=== PATIENT | female | born 1990 | race Caucasian/White ===

== ENCOUNTER 2020-02-21 19:14 | Emergency (ER) | payer BC ==
[~2020-02-21] VITALS: Ht 165.1 cm; Wt 86.4 kg
[~2020-02-21 19:14] MED LIST: /BUSP5TA OR; AMIT10TA2 PO; AMIT150T PO; BACL10TA2 PO; CARA1SUS PO; CELE10TA PO; DARV100T OR; DICL13PA TD; GICOCKTAIL PO; KETO10TAB PO; LIBRAX OR; LIORESAL PO; NICO7DIS4 TD; ONDA-1 OR; PERC5TAB PO; PREG25CA PO; PROT1TAB2 OR; PROT1TAB2 PO; REGL10TA6 PO; SUMA4INJ3 SC; SUMA5SPR; SUMA6INJ16 SC; SUMAPOW3; TYLE167L PO; XANA0.25 PO; XANA2TAB2 PO
[2020-02-21] MEDS ORDERED: SUCR1TA PO (19:36)
[2020-02-21] MEDS ORDERED: CLOP75TA2 (19:36)
[2020-02-21] MEDS ORDERED: OXYC1TAB23 (19:36)
[2020-02-21] MEDS ORDERED: PROM50TA4 PO (19:36)
[2020-02-21] MEDS ORDERED: ALPR1TAB6 PO (19:36)
[2020-02-21] MEDS ORDERED: DEXI60CA2 PO (19:36)
[2020-02-21] MEDS ORDERED: SUCR1SS PO (19:36)
[2020-02-21] MEDS ORDERED: HYDR-3363 PO (19:36)
[2020-02-21] MEDS ORDERED: MORPHINE 4 MG/ML 1ML VIAL/SYRINGE (J2270) IV ONE (20:00)
[2020-02-21] MEDS ORDERED: NS 1,000 ML IV ONE (20:00)
[2020-02-21] MEDS ORDERED: PROMETHAZINE INJ 25 MG/ML VIAL (J2550) IM ONE (20:30)
[2020-02-21 21:32] LABS: BASO % 0.4 % (0.0-1.0); EOS # 0.6 10^3/uL (0.0-0.5); EOS % 6.2 % (0.0-3.0); HEMATOCRIT 39.2 % (36.0-47.0); LYMPH # 2.4 10^3/uL (1.5-5.0); LYMPH % 26.8 % (24.0-44.0); MEAN CORPUSCULAR HEMOGLOBIN 28.4 pg (27.0-33.0); MEAN CORPUSCULAR HGB CONC 33.2 g/dl (32.0-36.5); MEAN CORPUSCULAR VOLUME 85.8 fl (80.0-96.0); MONO # 0.8 10^3/uL (0.0-0.8); MONO % 8.7 % (0.0-5.0); NEUTROPHILS # 5.2 10^3/uL (1.5-8.5); NEUTROPHILS % 57.6 % (36.0-66.0); PLATELET COUNT, AUTOMATED 374 10^3/uL (150-450); RED BLOOD COUNT 4.57 10^6/uL (4.00-5.40)
--- NOTE | 2020-02-21 21:43 | REPVR ---
PROCEDURE INFORMATION: Exam: US Pelvis Complete, Transabdominal and US Pelvis, Transvaginal Exam date and time: 02/21/2020 9:22 PM Age: 29 years old Clinical indication: Abdominal pain; Left lower quadrant; Additional info: Left abd pain TECHNIQUE: Imaging protocol: Real-time transabdominal and transvaginal pelvic ultrasound (complete) with image documentation. Transvaginal imaging was used for better evaluation of the endometrium and adnexa. COMPARISON: US PELVIC NON-OB COMPLETE 03/15/2015 6:18 PM FINDINGS: Uterus/cervix: Uterus measures 8.5 x 3.3 x 3.9 cm. The endometrial bilayer is 5.1 mm in width. IUD is visualized and appears to be in good position. Right adnexa: The right ovary measures 3.6 x 2.2 x 2.7 cm. Blood flow is detected. Left adnexa: The left ovary measures 3.1 x 2.1 x 3.3 cm. Blood flow is detected. Free fluid: No free fluid in the cul-de-sac. Bladder: The urinary bladder is unremarkable. IMPRESSION: No acute findings. Electronically signed by: Maryana Draper On 02/21/2020 21:42:38 PM
[2020-02-21] MEDS ORDERED: LACT10SO29 PO (22:52)
[2020-02-21 23:03] VITALS: BP 115/78
--- NOTE | 2020-02-22 04:01 | REP ---
Clinical: Constipation. Technique: Two supine views of the abdomen and pelvis. Findings: Bowel gas pattern is nonspecific. No significant fecal stasis, evidence for obstruction or perforation noted. No organomegaly. No abnormal calcifications. Evidence of prior cholecystectomy and IUD placement. Skeletal structures are intact. Impression: Nonspecific abdominal radiograph. Electronically Signed by Al Farrar MD 02/22/2020 03:52 A
== END 2020-02-21 23:08 | disposition home or self-care (01) ==
LOC: M ED 19:14
DX: R10.84 Generalized abdominal pain (principal); Z97.5 Presence of (intrauterine) contraceptive device; Z88.5 Allergy status to narcotic agent; Z88.8 Allergy status to other drugs, medicaments and biological substances; Z79.899 Other long term (current) drug therapy

== ENCOUNTER → 2020-04-12 | Outpatient (CLI) | payer MEDICARE, BC ==
[~2020-04-12] MED LIST changes: +ALPR1TAB6 PO; +CLOP75TA2; +DEXI60CA2 PO; +HYDR-3363 PO; +LACT20EL PO; +OXYC1TAB23; +PROM50TA4 PO; +SUCR1SS PO; +SUCR1TA PO
--- NOTE | 2020-04-12 12:52 | REP ---
GASTRIC EMPTYING STUDY: 04/12/2020. Clinical history: Gastroparesis. Technique: The patient ingested 1.1 mCi technetium 99m sulfur colloid in two scrambled eggs with 6 ounces of water. Anterior and posterior imaging performed at 2-minute intervals for 90 minutes. Washout curves were generated. Findings: The anterior and posterior imaging show no evidence of gastroesophageal reflux. Peristalsis and washout from the stomach was observed. The T1/2 is 74 minutes with a normal range less than 90 minutes. Impression: 1. Normal gastric emptying study. Electronically Signed by Mike Castillo MD 04/12/2020 10:06 A
== END ==
LOC: M RAD 07:39
PROVIDERS: ATTEND Nurse Practitioner Women's Health
DX: K31.84 Gastroparesis (principal)
CPT/HCPCS: 78264; A9541

== ENCOUNTER 2021-04-12 21:09 | Inpatient (IN) | payer MEDICARE, BC ==
[~2021-04-12] VITALS: Ht 165.1 cm; Wt 78.0 kg
[2021-04-12] MEDS ORDERED: DICY10CA13 (21:37)
[2021-04-12] MEDS ORDERED: NORT50CA (21:37)
[2021-04-12] MEDS ORDERED: FAMO1TAB11 (21:37)
[2021-04-12] MEDS ORDERED: OXYC10TA12 (21:37)
[2021-04-12] MEDS ORDERED: [UNRECOGNIZED DRUG - CODE] (21:37)
[2021-04-12] MEDS ORDERED: PROM25TA12 (21:37)
[2021-04-12] MEDS ORDERED: METOCLOPRAMIDE INJ 10MG/2ML VIAL (J2765 PER 1) IV ONE (23:10)
[2021-04-12] MEDS ORDERED: ONDANSETRON 4MG/2ML VIAL IV ONE (23:10)
[2021-04-12 23:15] LABS: BASO # 0.1 10^3/uL (0.0-0.2); BASO % 0.2 % (0.0-1.0); HEMOGLOBIN 11.6 g/dl (12.0-15.5); LYMPH # 1.6 10^3/uL (1.5-5.0); LYMPH % 4.1 % (24.0-44.0); MEAN CORPUSCULAR HEMOGLOBIN 24.3 pg (27.0-33.0); MEAN CORPUSCULAR HGB CONC 33.1 g/dl (32.0-36.5); MEAN CORPUSCULAR VOLUME 73.4 fl (80.0-96.0); MONO # 1.8 10^3/uL (0.0-0.8); MONO % 4.7 % (2.0-8.0); NEUTROPHILS # 33.9 10^3/uL (1.5-8.5); NEUTROPHILS % 89.9 % (36.0-66.0); PLATELET COUNT, AUTOMATED 473 10^3/uL (150-450); RED BLOOD COUNT 4.77 10^6/uL (4.00-5.40)
[2021-04-12 23:25] LABS: WHITE BLOOD COUNT 37.7 10^3/uL (4.0-10.0)
[2021-04-12] MEDS ORDERED: PANTOPRAZOLE 40MG VIAL (C9113 PER 1) IV ONE (23:45)
[2021-04-12 23:50] LABS: ALT/SGPT 24 U/L (12-78); BILIRUBIN,DIRECT 0.2 MG/DL (0.0-0.2); BILIRUBIN,TOTAL 0.6 MG/DL (0.2-1.0); BLOOD UREA NITROGEN 8 MG/DL (7-18); CALCIUM LEVEL 9.5 MG/DL (8.5-10.1); CARBON DIOXIDE LEVEL 20 MEQ/L (21-32); CHLORIDE LEVEL 105 MEQ/L (98-107); CK-MB VALUE MASS < 1.0 NG/ML (<3.6); CPK CREATINE PHOSPHOKINASE 70 U/L (26-192); CREATININE FOR GFR 0.56 MG/DL (0.55-1.30); GLOMERULAR FILTRATION RATE > 60.0 (>60); GLUCOSE, FASTING 99 MG/DL (70-100); LIPASE 72 U/L (73-393); MB/CK RELATIVE INDEX 1.43 (< OR =4); NT-PRO BNP 367 PG/ML (<125); POTASSIUM SERUM 3.8 MEQ/L (3.5-5.1); SODIUM LEVEL 139 MEQ/L (136-145); TROPONIN I < 0.02 NG/ML (< 0.10)
[2021-04-12] MEDS: MORPHINE 4 MG/ML 1ML VIAL/SYRINGE (J2270) IV PRN (23:55)
[2021-04-12 23:58] LABS: AMPHETAMINES LEVEL URINE NEGATIVE (NEGATIVE); BARBITURATES URINE NEGATIVE (NEGATIVE); BENZODIAZEPINES URINE POSITIVE (NEGATIVE); CANNABINOIDS URINE POSITIVE (NEGATIVE); COCAINE METABOLITE URINE NEGATIVE (NEGATIVE); METHADONE URINE NEGATIVE (NEGATIVE); OPIATES URINE POSITIVE (NEGATIVE); PHENCYCLIDINE URINE NEGATIVE (NEGATIVE)
[2021-04-13 00:19] LABS: HCG, SERUM QUALITATIVE NEGATIVE (NEGATIVE)
[2021-04-13] MEDS ORDERED: ISOVUE-370 76% 100ML VIAL As Ordered ONE (00:54)
--- NOTE | 2021-04-13 01:54 | REPVR ---
PROCEDURE INFORMATION: Exam: XR Chest Exam date and time: 04/12/2021 10:14 PM Age: 30 years old Clinical indication: Other: Cp; Additional info: Chest pain TECHNIQUE: Imaging protocol: XR of the chest. Views: 1 view. COMPARISON: CR Abdomen,Flat Upright,PA CHEST 03/15/2015 6:28 PM FINDINGS: LUNGS and PLEURAL SPACE: The lungs are symmetrically expanded. Lung volumes are within normal limits. There are hazy ill-defined ground-glass opacities at the visualized lower lung jaime, right slightly greater than left, new compared to the prior exam. This may be secondary to atelectasis or mild pneumonitis. No evidence of peribronchial thickening. There is no consolidation, pneumothorax, or pleural effusion. No evidence of pulmonary vascular redistribution. MEDIASTINUM: There is no mediastinal shift or widening. CARDIAC SILHOUETTE: Cardiothoracic ratio is within normal limits. BONY THORAX: No acute findings are seen. IMPRESSION: Mild pneumonitis versus atelectasis. Findings discussed above in detail. Electronically signed by: Joshua Freed On 04/13/2021 01:54:07 AM
[2021-04-13] MEDS ORDERED: PROMETHAZINE INJ 25 MG/ML VIAL (J2550) IV ONE (02:40)
--- NOTE | 2021-04-13 02:40 | REPVR ---
PROCEDURE INFORMATION: Exam: CT Chest With Contrast; Diagnostic Exam date and time: 04/13/2021 1:41 AM Age: 30 years old Clinical indication: Pain; Other: Chest; Additional info: Epigastric/abd pain TECHNIQUE: Imaging protocol: Diagnostic computed tomography of the chest with contrast. Radiation optimization: All CT scans at this facility use at least one of these dose optimization techniques: automated exposure control; mA and/or kV adjustment per patient size (includes targeted exams where dose is matched to clinical indication); or iterative reconstruction. Contrast material: ISO; Contrast volume: 100 ml; Contrast route: INTRAVENOUS (IV); COMPARISON: CR PORTABLE CHEST X-RAY 04/13/2021 12:22 AM FINDINGS: PULMONARY ARTERIES: Diameter of the main pulmonary trunk at 2.5 cm is within normal range. This examination is not optimized for evaluation of pulmonary emboli, however no central, acute appearing occlusive pulmonary emboli are seen bilaterally to the level of the pulmonary shruthi. HEART AND AORTA: Cardiothoracic ratio is borderline. No pericardial effusion seen. Metallic streak artifacts noted from the interatrial septum. No thoracic aortic aneurysm or dissection. Visualized proximal great vessels within the superior mediastinum are preserved. MEDIASTINUM: No mediastinal gas. The thyroid gland is homogeneous. There is hazy 4 cm ground-glass and slightly nodular soft tissue density within the anterior mediastinal fat, most likely residual or recurrent thymus. No hiatal hernia or periesophageal inflammatory stranding. No mediastinal hematoma. Trace amount of fluid seen within the pericardial recesses. A few borderline mediastinal and bilateral hilar lymph nodes are noted, measuring up to 9 mm in short axis. The significance of these nodes is uncertain. These could be reactive. Consider follow-up to confirm resolution. LUNGS: The lungs are symmetric in expansion. Bilateral lower lobe mildly confluent ground-glass, reticular and a few airspace opacities are noted, right slightly worse than left. This may be secondary to atelectasis and/or mild pneumonitis. Clinical and laboratory correlation may be helpful. Radiographic follow-up is advised to confirm complete resolution. Consider follow-up radiographs in 4 weeks, sooner if symptoms worsen. No pneumothorax or pleural effusion. No bronchiectasis or peribronchial thickening. UPPER ABDOMEN: Please refer to same-day CT abdomen report for complete findings. MSK AND BODY WALL: No acute findings. IMPRESSION: Lower lobe pulmonary opacities may be secondary to atelectasis and or pneumonia. Borderline mediastinal and hilar lymph nodes are noted up to 9 mm in short axis. Follow-up is advised as discussed above. Other incidental findings discussed above. Electronically signed by: Joshua Freed On 04/13/2021 02:39:20 AM
--- NOTE | 2021-04-13 02:47 | REPVR ---
PROCEDURE INFORMATION: Exam: CT Abdomen And Pelvis With Contrast Exam date and time: 04/13/2021 1:41 AM Age: 30 years old Clinical indication: Abdominal pain; Epigastric; Additional info: Epigastric/abd pain TECHNIQUE: Imaging protocol: Computed tomography of the abdomen and pelvis with contrast. Radiation optimization: All CT scans at this facility use at least one of these dose optimization techniques: automated exposure control; mA and/or kV adjustment per patient size (includes targeted exams where dose is matched to clinical indication); or iterative reconstruction. Contrast material: ISO; Contrast volume: 100 ml; Contrast route: INTRAVENOUS (IV); COMPARISON: CT ABD PELVIS WITH CONTRAST 03/15/2015 8:39 PM FINDINGS: LUNG BASES: Please refer to same-day chest CT report for complete findings. VASCULAR: Major vasculature is within normal limits. PERITONEAL : No free air or free fluid. GI: No hiatal hernia. The stomach contains some fluid and gas. The stomach is not sufficiently distended to evaluate wall thickening or for complete diagnostic evaluation by this exam. Non-specific fluid-filled loops of small bowel noted. No significant asymmetric small-bowel distention to suggest obstruction. There is no focal mesenteric inflammation. No mesenteric lymphadenopathy. Scattered fecal material and gas within portions of the colon. This could be correlated for mild constipation. The appendix does not appear inflamed. No evidence of acute diverticulitis. Some portions of the colon and rectum appear slightly thick-walled. This may be artifactual secondary to insufficient distention. Clinical correlation with any symptoms of minimal colitis. HEPATOBILIARY, PANCREAS, SPLEEN: Hepatic length is 18.7 cm. Attenuation of the liver is consistent with steatosis. A small area of focal severe fatty infiltration is noted anteriorly along the falciform ligament. The gallbladder has been removed. Slight prominence of the distal common bile duct up to 10 mm, likely post cholecystectomy related ductal ectasia. No pancreatic inflammation. Spleen not enlarged. ADRENALS, KIDNEYS, BLADDER, RETROPERITONEAL: Adrenals within normal limits. No hydronephrosis. Symmetric renal enhancement. No perinephric stranding or fluid. No perivesical stranding. No bladder wall thickening. Small nonspecific retroperitoneal lymph nodes. PELVIC: Anteverted uterus. IUD noted within the uterus. Gas within the vagina may be iatrogenic. There may be some follicular changes within the ovaries, difficult to confirm. If there are pelvic symptoms, consider ultrasound. MUSCULOSKELETAL: Moderately large posterior slightly paracentral right disc displacement at the L5/S1 level may be affecting right greater than left S1 nerve roots within the subarticular zones. Clinical correlation with any symptoms. IMPRESSION: No free-air, free-fluid or focal mesenteric inflammation. Nonspecific gastrointestinal findings to be correlated clinically as discussed above. Other incidental and nonemergent findings discussed above. Electronically signed by: Joshua Freed On 04/13/2021 02:46:20 AM
[2021-04-13] MEDS: MORPHINE 4 MG/ML 1ML VIAL/SYRINGE (J2270) IV PRN (02:53)
[2021-04-13] MEDS ORDERED: LevoFLOXacin IV 750 MG in IV 1 EA IV ONE (04:20)
[2021-04-13] MEDS ORDERED: ALBUTEROL 90 MCG/ACT 8GM HFA INHALER INH PRN (05:20)
[2021-04-13] MEDS ORDERED: ACETAMINOPHEN TAB 650MG DOSE (2X325MG) PO PRN (05:20)
[2021-04-13] MEDS ORDERED: SODIUM CHLORIDE 0.9% 1000ML IV SCH (05:20)
--- NOTE | 2021-04-13 05:44 | HPEPDOC ---
General Date of Admission 10/20/20 Date of Service: Apr 13, 2021 Chief Complaint The patient is a 30-year-old female admitted with a reason for visit of Chest Pain And Vomiting. Source: Patient History of Present Illness Patient is 30 years old female with past medical history of anxiety, depression, repaired PFO, [place] 2 years ago, endometriosis, cyclic vomiting syndrome, joshua roparesis presented to hospital with cough and abdominal pain. Patient stated that she started feeling chest congestion with cough and sore throat around 1 week ago. She denies fever or chills. She denies diarrhea. Yesterday, patient started feeling abdominal pain, diffuse in epigastric area 7 out of 10, intermittent associated with multiple episodes of vomiting, nausea. In ER patient was found to have leukocytosis of 37.7, hemoglobin 11.6, lactic acidosis within normal limit, BNP 367. CT chest showed Bilateral lower lobe mildly confluent ground-glass, reticular and a few airspace opacities are noted, right slightly worse than left. CT abdomen/pelvis showed No free-air, free-fluid or focal mesenteric inflammation. Home Medications Scheduled Alprazolam (Xanax) 0.25 Mg Tab, 0.25 MG PO DAILY, (Reported) Alprazolam (Alprazolam ER) 1 Mg Tab.er.24h, 1 TAB PO DAILY for sleep, (Reported) Amitriptyline HCl (Amitriptyline HCl) 150 Mg Tab, 150 MG PO QHS, (Reported) Citalopram Hydrobromide (Celexa) 10 Mg Tab, 10 MG PO DAILY, (Reported) Dexlansoprazole (Dexilant) 60 Mg bp, 60 MG PO DAILY, (Reported) Diclofenac Epolamine (Flector) 1 Patch Tdsy, 1 PATCH TD BID, (Reported) LEFT LOWER ABDOMEN Hydroxyzine HCl (Hydroxyzine HCl) 25 Mg Tablet, 1 TAB PO DAILY for anxiety, (Reported) Lactulose (Lactulose) 10 Gm/15 Ml Solution, 30 ML PO BID for constipation Sucralfate (Sucralfate) 1 Gm Tablet, 1 TAB PO TID, (Reported) Sucralfate (Carafate) 1 Gm/10 Ml Oral.susp, 10 ML PO QID, (Reported) before food Scheduled PRN Acetaminophen (Tylenol) 500 Mg/15 Ml Liq, 650 MG PO Q4HP PRN for PAIN OR FEVER, (Reported) Baclofen (Baclofen) 10 Mg Tab, 10 MG PO BIDP PRN for SPASMS, (Reported) Promethazine Hcl (Promethazine HCl) 50 Mg Tablet, 25 MG PO BID PRN for NAUSEA, (Reported) Miscellaneous Medications Clopidogrel Bisulfate (Clopidogrel) 75 Mg Tablet, (Reported) Dicyclomine HCl (Dicyclomine HCl) 10 Mg Capsule, (Reported) Famotidine (Famotidine) 20 Mg Tablet, (Reported) Morphine Sulfate (Morphine Sulfate Suppository) 20 Mg Supp.rect, (Reported) Nortriptyline HCl (Nortriptyline HCl) 50 Mg Capsule, (Reported) Oxycodone HCl (Oxycodone HCl) 10 Mg Tablet, (Reported) Oxycodone HCl/Acetaminophen (Oxycodone-Acetaminophen 5-325) 1 Each Tablet, (Reported) Promethazine HCl (Promethazine HCl) 25 Mg Tablet, (Reported) Allergies Coded Allergies: cephalexin (Verified Allergy, Intermediate, hives, 02/21/20) ondansetron (Verified Allergy, Intermediate, hives, 02/21/20) IV only tramadol (Verified Allergy, Intermediate, hives, 02/21/20) Past Medical History Medical History anxiety, depression, repaired PFO, [place] 2 years ago, endometriosis, cyclic vomiting syndrome, gastroparesis Surgical History repaired PFO Family History I personally reviewed family history and found not pertinent Social History * Smoker: current smoker Alcohol: Denies Drugs: marijuana A-FIB/CHADSVASC A-FIB History Current/History of A-Fib/PAF?: No Current PO Anticoag Therapy: No Review of Systems Constitutional: Reports: Weakness, Fatigue Eyes: Denies: Pain ENT: Denies: Head Aches Skin: Denies: Rash, Lesions Pulmonary: Reports: Dyspnea, Cough Cardiovascular: Denies: Chest Pain, Palpitations Gastrointestinal: Reports: Nausea, Vomiting, Abdominal Pain Genitourinary: Denies: Dysuria Hematologic: Denies: Bruising Endocrine: Denies: Polydipsia Musculoskeletal: Denies: Neck Pain Neurological: Denies: Weakness Psych: Reports: Mood Normal Physical Examination General Exam: Positive: Alert, Cooperative Eye Exam: Positive: PERRLA ENT Exam: Positive: Atraumatic Neck Exam: Positive: Supple; Negative: JVD Chest Exam: Positive: Rhonchi, Wheezing Heart Exam: Positive: Rate Normal Telemetry: Positive: Sinus Abdomen Exam: Positive: Normal bowel sounds Extremity Exam: Negative: Clubbing, Cyanosis Skin Exam: Positive: Nl turgor and temperature Neuro Exam: Positive: Strength at 5/5 X4 ext Psych Exam: Positive: Mental status NL Vital Signs Vital Signs Date Time Temp Pulse Resp B/P (MAP) Pulse Ox O2 Delivery O2 Flow Rate FiO2 04/13/21 03:17 16 99 04/13/21 03:09 91 Room Air 04/13/21 02:07 137/84 (101) 04/12/21 21:10 98.0 Laboratory Data Labs 24H Laboratory Tests 2 04/12/21 23:04: Immature Granulocyte % (Auto) 1.1, Neutrophils (%) (Auto) 89.9H, Lymphocytes (%) (Auto) 4.1L, Monocytes (%) (Auto) 4.7, Eosinophils (%) (Auto) 0.0, Basophils (%) (Auto) 0.2, Neutrophils # (Auto) 33.9H, Lymphocytes # (Auto) 1.6, Monocytes # ( Auto) 1.8H, Eosinophils # (Auto) 0.0, Basophils # (Auto) 0.1, Nucleated Red Blood Cells % (auto) 0.0, D-Dimer, Quantitative 333.30, Anion Gap 14, Glomerular Filtration Rate > 60.0, Calcium Level 9.5, Total Bilirubin 0.6, Direct Bilirubin 0.2, Aspartate Amino Transf (AST/SGOT) 21, Alanine Aminotransferase (ALT/SGPT) 24, Alkaline Phosphatase 101, Total Creatine Kinase 70, Creatine Kinase MB < 1.0, Creatine Kinase MB Relative Index 1.43, Troponin I < 0.02, PB-Xgg-C-Type Natriuretic Peptide 367H, Total Protein 7.0, Albumin 4.0, Albumin/Globulin Ratio 1.3, Lipase 72L, Human Chorionic Gonadotropin, Qual NEGATIVE 04/12/21 23:15: Urine Opiates Screen POSITIVEH, Urine Methadone Screen NEGATIVE, Urine Barbiturates Screen NEGATIVE, Urine Phencyclidine Screen NEGATIVE, Urine Amphe tamines Screen NEGATIVE, Urine Benzodiazepines Screen POSITIVEH, Urine Cocaine Metabolite Screen NEGATIVE, Urine Cannabinoids Screen POSITIVEH 04/13/21 00:10: Lactic Acid Level 0.8 CBC/BMP Laboratory Tests 04/12/21 23:04 Microbiology Microbiology 7/1/21 Respiratory Virus Panel (PCR) (HETAL) - Final, Complete Assessment/Plan Patient is 30 years old female with past medical history of anxiety, depression, repaired PFO, [place] 2 years ago, endometriosis, cyclic vomiting syndrome, gastroparesis presented to hospital with cough and abdominal pain. Patient stated that she started feeling chest congestion with cough and sore throat around 1 week ago. She denies fever or chills. She denies diarrhea. Yesterday, patient started feeling abdominal pain, diffuse in epigastric area 7 out of 10, intermittent associated with multiple episodes of vomiting, nausea. In ER patient was found to have leukocytosis of 37.7, hemoglobin 11.6, lactic acidosis within normal limit, BNP 367. CT chest showed Bilateral lower lobe mildly confluent ground-glass, reticular and a few airspace opacities are noted, right slightly worse than left. CT abdomen/pelvis showed No free-air, free-fluid or focal mesenteric inflammation. Problems (1) Pneumonia Status: Acute Problem Text: Community-acquired pneumonia CT chest showed Bilateral lower lobe mildly confluent ground-glass, reticular and a few airspace opacities are noted, right slightly worse than left. CT abdomen/pelvis showed No free-air, free-fluid or focal mesenteric inflammation Will check Legionella antigen/Streptococcus antigen Levaquin IV Will check sputum culture, blood culture Inhalers, prednisone p.o. for 5 days IV fluid (2) Vomiting Status: Acute Problem Text: Patient has gastroparesis superimposed with cyclic vomiting syndrome Metoclopramide IV (3) Depression Status: Chronic Problem Text: Continue home cardioprotective medications (4) Anxiety Status: Chronic Problem Text: Continue home cardioprotective medications Plan / VTE VTE Prophylaxis Ordered?: Yes MOY SPENCE DO Apr 13, 2021 05:44
[2021-04-13] MEDS ORDERED: ALPR0.5T3 PO (05:51)
[2021-04-13] MEDS ORDERED: ALPR1TAB6 PO (05:51)
[2021-04-13] MEDS ORDERED: [UNRECOGNIZED DRUG - CODE] PR (06:07)
[2021-04-13] MEDS ORDERED: CELE40TA PO (06:07)
[2021-04-13] MEDS ORDERED: FAMO20TA PO (06:07)
[2021-04-13] MEDS ORDERED: DICY1CAP8 PO (06:07)
[2021-04-13] MEDS ORDERED: PROM25TA12 PO (06:07)
[2021-04-13] MEDS ORDERED: OXYC10TA12 PO (06:07)
[2021-04-13] MEDS ORDERED: NORT50CA PO (06:07)
[2021-04-13] MEDS ORDERED: SUCR1SS PO (06:07)
[2021-04-13] MEDS ORDERED: PROM25SU3 PR (06:07)
[2021-04-13] MEDS ORDERED: DEXI60CA2 PO (06:07)
[2021-04-13] MEDS ORDERED: ASPI-161 PO (06:07)
[2021-04-13] MEDS ORDERED: KETAMINE NASAL SPRAY (06:15)
[2021-04-13] MEDS ORDERED: DICYCLOMINE 10 MG CAP PO PRN (06:15)
[2021-04-13] MEDS ORDERED: BACLOFEN 10 MG TAB PO PRN (06:15)
[2021-04-13] MEDS ORDERED: ALPRAZolam 0.5 MG TAB PO PRN (06:15)
[2021-04-13 06:39] VITALS: BP 120/70
[2021-04-13] MEDS: CitaloPRAM (CeleXA) 20 MG TAB PO SCH ×2 (06:55→20:13)
[2021-04-13] MEDS: ASPIRIN 81MG ENTERIC TABLET PO SCH ×2 (06:55→20:13)
[2021-04-13 07:07] LABS: BASO % 0.2 % (0.0-1.0); EOS % 0.1 % (0.0-3.0); HEMATOCRIT 33.8 % (36.0-47.0); HEMOGLOBIN 10.9 g/dl (12.0-15.5); LYMPH # 1.6 10^3/uL (1.5-5.0); LYMPH % 8.6 % (24.0-44.0); MEAN CORPUSCULAR HEMOGLOBIN 24.4 pg (27.0-33.0); MEAN CORPUSCULAR HGB CONC 32.2 g/dl (32.0-36.5); MEAN CORPUSCULAR VOLUME 75.6 fl (80.0-96.0); MONO # 0.9 10^3/uL (0.0-0.8); MONO % 4.9 % (2.0-8.0); NEUTROPHILS # 15.8 10^3/uL (1.5-8.5); NEUTROPHILS % 85.6 % (36.0-66.0); PLATELET COUNT, AUTOMATED 425 10^3/uL (150-450); RED BLOOD COUNT 4.47 10^6/uL (4.00-5.40); WHITE BLOOD COUNT 18.4 10^3/uL (4.0-10.0)
[2021-04-13 07:16] LABS: ALBUMIN 3.4 GM/DL (3.2-5.2); ALT/SGPT 23 U/L (12-78); BILIRUBIN,TOTAL 0.5 MG/DL (0.2-1.0); BLOOD UREA NITROGEN 6 MG/DL (7-18); CALCIUM LEVEL 8.8 MG/DL (8.5-10.1); CARBON DIOXIDE LEVEL 23 MEQ/L (21-32); CHLORIDE LEVEL 109 MEQ/L (98-107); GLOMERULAR FILTRATION RATE > 60.0 (>60); GLUCOSE, FASTING 119 MG/DL (70-100); MAGNESIUM LEVEL 1.9 MG/DL (1.8-2.4); POTASSIUM SERUM 3.5 MEQ/L (3.5-5.1); SODIUM LEVEL 140 MEQ/L (136-145); TOTAL PROTEIN 6.3 GM/DL (6.4-8.2)
[2021-04-13] MEDS: NORTRIPTYLINE 25 MG CAP PO SCH ×2 (07:42→20:14)
[2021-04-13] MEDS: NS 1,000 ML IV SCH ×2 (08:05→15:47)
[2021-04-13] MEDS: IPRATROPIUM 0.5MG/ALBUTEROL 2.5MG INH SOL UD 3ML (DUONEB) INH SCH ×5 (08:14→23:32)
[2021-04-13] MEDS: predniSONE 20 MG TAB PO SCH (08:56)
[2021-04-13] MEDS: SUCRALFATE SUSP 1GM/10ML UD PO SCH ×3 (08:56→17:32)
[2021-04-13] MEDS: HEPARIN SOD (PORCINE) 5000UNITS/ML 1ML VIAL/SYRINGE SC SCH ×2 (09:00→20:13)
[2021-04-13] MEDS ORDERED: FAMOTIDINE 20 MG TAB PO SCH (09:00)
[2021-04-13] MEDS: PANTOPRAZOLE 40MG TAB (PROTONIX) PO SCH (09:08)
[2021-04-13] MEDS: oxyCODONE 5MG TAB PO PRN ×3 (09:09→22:28)
[2021-04-13] MEDS: METOCLOPRAMIDE INJ 10MG/2ML VIAL (J2765 PER 1) IV PRN ×2 (11:24→17:29)
[2021-04-13 14:00] VITALS: BP 113/59
--- NOTE | 2021-04-13 17:59 | ECGEPIP ---
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
--- NOTE | 2021-04-13 19:03 | IPNPDOC ---
Text Note Date of Service The patient was seen on 04/13/21. NOTE Subjective: Patient was seen and examined at bedside today morning. In the morning she did have some pain in her epigastric region radiating to the chest. She did not get her any morning medications when I saw her. Likely the epigastric pain is gastritis she was given sucralfate and was put on pantoprazole 40 mg and her symptoms resolved. She reports her symptoms are a lot better than yesterday. She still reports to have a mild cough. Objective: General: Patient is alert oriented x3, patient was laying in bed, mild distress from her epigastric pain. Cardiac: S1 and S2 normal, regular rate and rhythm, no murmurs appreciated. Lungs: Patient has inspiratory wheezes in bilateral lungs, no rhonchi or rubs noted. Abdomen: Patient does have some epigastric pain tenderness and rest of the abdomen is normal. Extremities: No pedal edema appreciated. Normal pulses in bilateral upper and lower extremity. 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 Skin: No rash, lesions noted. Labs: Vitals: Temperature 97.9, HR 79, RR 17, BP 120/70 CBC: WBC 18.4 [came down from 37.7], Hb 10.9, HCT 33.8, platelet 425 BMP NA 140, K3.5, CL 109, HCO3 23, BUN 6, creatinine 0.6, glucose 119. Assessment: 30-year-old female with PMH of anxiety, depression, repaired PFO, [place] 2 years ago, endometriosis, cyclic vomiting syndrome, gastroparesis presented to the ED with cough and abdominal pain going on since few days. Further evaluation in the ED showed patient was having leukocytosis with white count of 37.7, CT chest showing mild groundglass opacities in bilateral lungs representing pneumonia . Patient is admitted under hospitalist service for further evaluation and management. Plan: Pneumonia: Likely community-acquired pneumonia vs aspiration pneumonia[given her toxicology report showing positive for opioids benzos and cannabinoids] based on white count, cough, and CT findings. -Patient was started on Levaquin. -Further testing for pneumonia Legionella, mycoplasma pneumonia IgG and IgM, strep pneumo testing was pending. -Blood cultures pending, sputum culture pending. Suspected asthma: -Patient was started on inhaled steroids for wheezing in her lungs on admission -We will continue prednisone 40 mg p.o. daily. -We will start patient on albuterol every 4 hours as needed Epigastric pain likely due to gastritis: -We will continue patient on sucralfate and pantoprazole 40 mg orally. -Today morning after giving the medication her pain in the epigastric region did resolve. Cyclic vomiting syndrome: -Patient has a history of this condition, as well as superimposed by gastroparesis. -We will continue metoclopramide as needed Anxiety/depression -We will continue home medication of nortriptyline and citalopram. DVT prophylaxis: - Heparin subcutaneous. Disposition: Based on patient's improvement, she might be able to discharge tomorrow VS,Katie, I+O VS, Nirmalae, I+O Laboratory Tests 04/12/21 23:04 04/13/21 05:30 Vital Signs Date Time Temp Pulse Resp B/P (MAP) Pulse Ox O2 Delivery O2 Flow Rate FiO2 04/13/21 16:23 16 04/13/21 14:00 97.6 76 113/59 (77) 98 Room Air I&O- Last 24 Hours up to 6 AM 04/13/21 06:00 Intake Total 150 ml Balance 150 ml GME ATTESTATION GME ATTESTATION My faculty preceptor for this patient encounter was physically present during e encounter and was fully available. All aspects of the patient interview, examination, medical decision making process, and medical care plan development were reviewed and approved by the faculty preceptor. The faculty preceptor is aware and concurs with the plan as stated in the body of this note and will attest to such by his/her cosignature. ATTENDING NOTE I, Olimpia Caban, have independently examined this patient and performed my own physical exam, as well as reviewed the documentation and edited where necessary. I have discussed in detail with the resident / student the findings and plan of treatment as documented by the resident / student and edited their note. I agree with their findings and treatment plan and have edited their documentation. I will continue to follow the patient during this hospital stay. Vesta Soto MD Apr 13, 2021 19:03 OLIMPIA CABAN MD Apr 13, 2021 21:29
[2021-04-13] MEDS ORDERED: PROCHLORPERAZINE 10MG/2ML VIAL (J0780 PER 1) IM PRN (20:50)
[2021-04-13 22:00] VITALS: BP 113/56
--- NOTE | 2021-04-13 23:14 | ECGEPIP ---
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 Marginal ST/T wave abnormalities. No change from 04/12/21 Electronically Signed on 04-13-2021 23:14:07 EDT by Jeb Gilmore
[2021-04-14] MEDS: NS 1,000 ML IV SCH ×2 (02:25→12:25)
[2021-04-14] MEDS: IPRATROPIUM 0.5MG/ALBUTEROL 2.5MG INH SOL UD 3ML (DUONEB) INH SCH ×4 (03:09→15:05)
[2021-04-14 06:00] VITALS: BP 114/68
[2021-04-14] MEDS ORDERED: LevoFLOXacin IV 750 MG in IV 1 EA IV SCH (06:00)
[2021-04-14 06:10] LABS: HEMATOCRIT 30.4 % (36.0-47.0); HEMOGLOBIN 9.5 g/dl (12.0-15.5); MEAN CORPUSCULAR HEMOGLOBIN 24.2 pg (27.0-33.0); MEAN CORPUSCULAR HGB CONC 31.3 g/dl (32.0-36.5); MEAN CORPUSCULAR VOLUME 77.4 fl (80.0-96.0); PLATELET COUNT, AUTOMATED 342 10^3/uL (150-450); RED BLOOD COUNT 3.93 10^6/uL (4.00-5.40); WHITE BLOOD COUNT 10.5 10^3/uL (4.0-10.0)
[2021-04-14] MEDS: SUCRALFATE SUSP 1GM/10ML UD PO SCH ×2 (08:08→12:25)
[2021-04-14] MEDS: PANTOPRAZOLE 40MG TAB (PROTONIX) PO SCH (08:08)
[2021-04-14] MEDS: predniSONE 20 MG TAB PO SCH (08:08)
[2021-04-14] MEDS: HEPARIN SOD (PORCINE) 5000UNITS/ML 1ML VIAL/SYRINGE SC SCH (08:08)
[2021-04-14] MEDS: oxyCODONE 5MG TAB PO PRN ×2 (09:42→14:49)
[2021-04-14] MEDS: METOCLOPRAMIDE INJ 10MG/2ML VIAL (J2765 PER 1) IV PRN (09:42)
[2021-04-14 11:30] LABS: ALBUMIN 3.2 GM/DL (3.2-5.2); ALT/SGPT 25 U/L (12-78); BILIRUBIN,TOTAL 0.3 MG/DL (0.2-1.0); BLOOD UREA NITROGEN 5 MG/DL (7-18); CALCIUM LEVEL 8.8 MG/DL (8.5-10.1); CARBON DIOXIDE LEVEL 23 MEQ/L (21-32); CHLORIDE LEVEL 110 MEQ/L (98-107); CREATININE FOR GFR 0.59 MG/DL (0.55-1.30); FERRITIN 30 NG/ML (8-252); GLOMERULAR FILTRATION RATE > 60.0 (>60); GLUCOSE, FASTING 115 MG/DL (70-100); IRON (FE) 94 UG/DL (50-170); MAGNESIUM LEVEL 1.7 MG/DL (1.8-2.4); PERCENT SATURATION 24.2 % (13.2-45.0); POTASSIUM SERUM 3.6 MEQ/L (3.5-5.1); SODIUM LEVEL 142 MEQ/L (136-145); TOTAL IRON BINDING CAPACITY 389 UG/DL (250-450); TOTAL PROTEIN 5.7 GM/DL (6.4-8.2)
[2021-04-14] MEDS ORDERED: VENTAER INH (13:00)
[2021-04-14] MEDS ORDERED: LEVO750T13 PO (13:04)
[2021-04-14 16:08] LABS: MYCOPLASMA PNEUMONIAE IgG <100 U/mL (0-99); MYCOPLASMA PNEUMONIAE IgM <770 U/mL (0-769)
--- NOTE | 2021-04-14 19:38 | DS.PDOC ---
Discharge Summary General Date of Admission Apr 13, 2021 at 05:27 Date of Discharge April 14, 2021 Attending Physician: OLIMPIA CABAN MD Discharge Summary PROCEDURES PERFORMED DURING STAY: None. ADMITTING DIAGNOSES: Community-acquired pneumonia Repaired PFO [place] 3 years ago Endometriosis Cyclic vomiting syndrome Gastroparesis Anxiety/depression DISCHARGE DIAGNOSES: Repaired PFO [place] 3 years ago Endometriosis Cyclic vomiting syndrome Gastroparesis Anxiety/depression COMPLICATIONS/CHIEF COMPLAINT: Pneumonia. HISTORY OF PRESENT ILLNESS:30-year-old female with PMH of anxiety, depression, repaired PFO, [place] 2 years ago, endometriosis, cyclic vomiting syndrome, gastroparesis presented to the ED with cough and abdominal pain going on since few days. Further evaluation in the ED showed patient was having leukocytosis with white count of 37.7, CT chest showing mild groundglass opacities in bilateral lungs representing pneumonia . HOSPITAL COURSE: Pneumonia - possibly 2/2 community-acquired pneumonia -Clinically has reported improvement of breathing and cough -Leukocytosis is improved -c/w Levaquin on discharge for completion of antibitoic course Suspected asthma: -Patient was started on inhaled steroids for wheezing in her lungs on admission -Was on prednisone that will be discontinued now -c/w albuterol every 4 hours as needed s/p Epigastric pain likely due to gastritis: -c/w sucralfate and pantoprazole 40 mg orally Cyclic vomiting syndrome: -Patient has a history of this condition, as well as superimposed by gastroparesis. -We will continue metoclopramide as needed Anxiety/depression -c/w nortriptyline and citalopram. DVT prophylaxis: - c/w Heparin subcutaneous. DISCHARGE MEDICATIONS: Please see below. ALLERGIES: Please see below. PHYSICAL EXAMINATION ON DISCHARGE: VITAL SIGNS: Please see below. General: Patient is alert oriented x3, patient was laying in bed, no apparent distress Cardiac: S1 and S2 normal, regular rate and rhythm, no murmurs appreciated. Lungs: Patient lungs are clear bilaterally, no rhonchi or wheezes. [Resolution of the wheezes which were present earlier] Abdomen: Positive bowel sounds, no tenderness on palpation in the all 4 quadrants Extremities: No pedal edema appreciated. Normal pulses in bilateral upper and lower extremity. 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 Skin: No rash, lesions noted. LABORATORY DATA: Please see below. IMAGING: Chest x-ray done on 04/12/2021: Reported as: Mild pneumonitis versus atelectasis. There are hazy ill-defined gr oundglass opacities at the visualized left lower lobe field, right slightly greater than left, new compared to the prior exam. CT abdomen pelvis with IV contrast: 04/13/2021: Reported as:No free-air, free-fluid or focal mesenteric inflammation. Nonspecific gastrointestinal findings to be correlated clinically as discussed above. CT chest with contrast done on 04/13/2021: Reported as:Bilateral lower lobe mildly confluent ground-glass, reticular and a few airspace opacities are noted, right slightly worse than left. This may be secondary to atelectasis and/or mild pneumonitis. Clinical and laboratory correlation may be helpful. Radiographic follow-up is advised to confirm complete resolution. Consider follow-up radiographs in 4 weeks, sooner if symptoms worsen. PROGNOSIS: Good ACTIVITY: As tolerated. DIET: Regular diet DISCHARGE PLAN: To go home DISPOSITION: 01 Home, Self-Care. DISCHARGE INSTRUCTIONS: - Please follow-up with PCP in 3 to 5 days. -Continue taking Levaquin for 4 more days orally. -Please take albuterol inhaler as needed for any wheezing and asthma-like symptoms. -Patient might need outpatient spirometry for the diagnosis of asthma. ITEMS TO FOLLOWUP ON ON OUTPATIENT: Follow with PCP in 3 to 5 days. DISCHARGE CONDITION: Stable. TIME SPENT ON DISCHARGE: 45 minutes Vital Signs/I&Os Vital Signs Date Time Temp Pulse Resp B/P (MAP) Pulse Ox O2 Delivery O2 Flow Rate FiO2 04/14/21 15:20 16 Room Air 04/14/21 06:00 98.0 69 114/68 (83) 98 I&O- Last 24 Hours up to 6 AM 04/14/21 06:00 Intake Total 2550 ml Output Total 1425 ml Balance 1125 ml Laboratory Data Labs 24H Laboratory Tests 2 04/14/21 05:32: Nucleated Red Blood Cells % (auto) 0.0 04/14/21 10:44: Anion Gap 9, Glomerular Filtration Rate > 60.0, Calcium Level 8.8, Magnesium Level 1.7L, Iron Level 94, Total Iron Binding Capacity 389, Transferrin % Saturation 24.2, Ferritin 30, Total Bilirubin 0.3, Aspartate Amino Transf (AST/SGOT) 18, Alanine Aminotransferase (ALT/SGPT) 25, Alkaline Phosphatase 71, Total Protein 5.7L, Albumin 3.2, Albumin/Globulin Ratio 1.3 CBC/BMP Laboratory Tests 04/14/21 05:32 04/14/21 10:44 Microbiology Microbiology 04/13/21 Group A Streptococcus Screen (HETAL) - Final, Complete 04/13/21 Group A Streptococcus Screen (HETAL) - Final, Complete 04/13/21 Blood Culture - Preliminary, Resulted No growth after 24 hours . All specim... 04/13/21 Blood Culture - Preliminary, Resulted No growth after 24 hours . All specim... 04/13/21 Respiratory Virus Panel (PCR) (HETAL) - Final, Complete Discharge Medications Scheduled Alprazolam (Alprazolam ER) 1 Mg Tab.er.24h, 1 MG PO QHS, (Reported) Aspirin (Aspirin EC) 81 Mg Tablet.dr, 81 MG PO QHS, (Reported) Citalopram Hydrobromide (Celexa) 40 Mg Tablet, 40 MG PO QHS, (Reported) Dexlansoprazole (Dexilant) 60 Mg Cap.bp, 60 MG PO QHS, (Reported) Famotidine (Famotidine) 20 Mg Tablet, 20 MG PO DAILY, (Reported) Levofloxacin (Levofloxacin) 750 Mg Tablet, 750 MG PO DAILY Nortriptyline HCl (Nortriptyline HCl) 50 Mg Capsule, 100 MG PO QHS, (Reported) Sucralfate (Carafate) 1 Gm/10 Ml Oral.susp, 10 ML PO AC, (Reported) Scheduled PRN Albuterol Sulfate (Ventolin Hfa) 18 Gm Hfa.aer.ad, 2 PUFF INH Q4H PRN for WHEEZING Alprazolam (Alprazolam) 0.5 Mg Tablet, 0.5 MG PO DAILY PRN for ANXIETY, (Reported) Baclofen (Baclofen) 10 Mg Tab, 10 MG PO TID PRN for MUSCLE SPASMS, (Reported) Dicyclomine HCl (Dicyclomine HCl) 10 Mg Capsule, 10 MG PO QID PRN for SPASMS, (Reported) Morphine Sulfate (Morphine Sulfate Suppository) 20 Mg Supp.rect, 20 MG MS BID PRN for PAIN LEVEL 6-10, (Reported) Oxycodone HCl (Oxycodone HCl) 10 Mg Tablet, 10 MG PO TID PRN for PAIN LEVEL 6- 10, (Reported) CAN TAKE A SECOND TAB PER DOSE Promethazine HCl (Promethazine HCl) 25 Mg Tablet, 25 MG PO QID PRN for NAUSEA, (Reported) Promethazine HCl (Promethegan) 25 Mg Supp.rect, 25 MG MS BID PRN for NAUSEA, (Reported) [Ketamine Nasal [place]] , 1 DOSE NA ASDIRECTED PRN for PAIN, (Reported) Allergies Coded Allergies: cephalexin (Verified Allergy, Intermediate, hives, 02/21/20) ondansetron (Verified Allergy, Intermediate, hives, 02/21/20) IV only tramadol (Verified Allergy, Intermediate, hives, 02/21/20) GME ATTESTATION GME ATTESTATION My faculty preceptor for this patient encounter was physically present during the encounter and was fully available. All aspects of the patient interview, examination, medical decision making process, and medical care plan development were reviewed and approved by the faculty preceptor. The faculty preceptor is aware and concurs with the plan as stated in the body of this note and will attest to such by his/her cosignature. ATTENDING NOTE I, Olimpia Caban, have independently examined this patient and performed my own physical exam, as well as reviewed the documentation and edited where necessary. I have discussed in detail with the resident / student the findings and plan of treatment as documented by the resident / student and edited their note. I agree with their findings and treatment plan and have edited their documentation. I will continue to follow the patient during this hospital stay. Time spent on discharge 35 minutes Vesta Soto MD Apr 14, 2021 19:38 OLIMPIA CABAN MD Apr 14, 2021 20:59
[2021-04-17 14:07] LABS: BODY FLUID CULTURE Not indicated. (.); LEGIONELLA ANTIGEN URINE Negative (Negative); ORGANISM ID Not indicated. (.); SPECIMEN SOURCE Urine (.); URINE STREP PNEUMONIAE ANTIGEN Negative (Negative)
[2021-04-18 15:10] LABS: CHLAMYDIA PNEUMONIAE IgG <1:16 (Neg:<1:16); CHLAMYDIA PNEUMONIAE IgM <1:10 (Neg:<1:10)
== END 2021-04-14 15:57 | disposition home or self-care (01) | DRG 391 ==
LOC: M ED 21:09 → M ED INP 21:10 → OBSVTOIN 04-13 05:27 → ENRESERV 04-13 05:54 → M MSPAV 04-13 06:38
PROVIDERS: ADMIT Internal Medicine; ATTEND Internal Medicine
DX: K29.70 Gastritis, unspecified, without bleeding (principal); J18.9 Pneumonia, unspecified organism; J45.909 Unspecified asthma, uncomplicated; R11.15 Cyclical vomiting syndrome unrelated to migraine; K31.84 Gastroparesis; I25.2 Old myocardial infarction; F41.9 Anxiety disorder, unspecified; F32.9 Major depressive disorder, single episode, unspecified; Z79.899 Other long term (current) drug therapy; Z79.82 Long term (current) use of aspirin; Z88.8 Allergy status to other drugs, medicaments and biological substances; F17.200 Nicotine dependence, unspecified, uncomplicated

== ENCOUNTER 2021-11-24 11:37 | Emergency (ER) | payer BC, MEDICARE, OTHER ==
[~2021-11-24] VITALS: Ht 165.1 cm; Wt 70.5 kg
[~2021-11-24 11:37] MED LIST changes: +ALPR0.5T3 PO; +ASPI-161 PO; +CELE40TA PO; +DICY10CA13; +DICY1CAP8 PO; +FAMO1TAB11; +FAMO20TA PO; +KETAMINE NASAL SPRAY; +LEVO750T13 PO; +NORT50CA; +NORT50CA PO; +OXYC10TA12; +OXYC10TA12 PO; +PROM25SU3 PR; +PROM25TA12; +PROM25TA12 PO; -SUMA4INJ3 SC; +SUMA4INJ6 SC; -SUMA5SPR; +SUMA5SPR3; -SUMA6INJ16 SC; +SUMA6INJ25 SC; +VENTAER INH; +[UNRECOGNIZED DRUG - CODE]; +[UNRECOGNIZED DRUG - CODE] PR
[2021-11-24 12:28] LABS: BASO % 0.5 % (0.0-1.0); EOS # 0.6 10^3/uL (0.0-0.5); EOS % 7.1 % (0.0-3.0); HEMATOCRIT 38.3 % (36.0-47.0); HEMOGLOBIN 12.3 g/dl (12.0-15.5); LYMPH # 0.9 10^3/uL (1.5-5.0); LYMPH % 9.7 % (24.0-44.0); MEAN CORPUSCULAR HEMOGLOBIN 25.3 pg (27.0-33.0); MEAN CORPUSCULAR HGB CONC 32.1 g/dl (32.0-36.5); MEAN CORPUSCULAR VOLUME 78.8 fl (80.0-96.0); MONO # 0.5 10^3/uL (0.0-0.8); MONO % 5.5 % (2.0-8.0); NEUTROPHILS # 6.8 10^3/uL (1.5-8.5); NEUTROPHILS % 76.9 % (36.0-66.0); PLATELET COUNT, AUTOMATED 455 10^3/uL (150-450); RED BLOOD COUNT 4.86 10^6/uL (4.00-5.40); WHITE BLOOD COUNT 8.9 10^3/uL (4.0-10.0)
[2021-11-24 12:39] LABS: INR 0.99; PROTHROMBIN TIME 13.5 SECONDS (12.7-14.5)
[2021-11-24 12:40] LABS: PARTIAL THROMBOPLASTIN TIME 23.8 SECONDS (25.9-37.0)
[2021-11-24] MEDS ORDERED: MORPHINE 4 MG/ML 1ML VIAL/SYRINGE (J2270) IV ONE (12:45)
[2021-11-24] MEDS ORDERED: ISOVUE-370 76% 100ML VIAL As Ordered ONE (12:54)
[2021-11-24] MEDS ORDERED: ONDANSETRON 4MG/2ML VIAL IV ONE (12:55)
[2021-11-24 13:01] LABS: ALBUMIN 3.9 GM/DL (3.2-5.2); BILIRUBIN,DIRECT 0.1 MG/DL (0.0-0.2); BILIRUBIN,TOTAL 0.4 MG/DL (0.2-1.0); POTASSIUM SERUM 4.7 MEQ/L (3.5-5.1); TOTAL PROTEIN 6.7 GM/DL (6.4-8.2)
[2021-11-24] MEDS ORDERED: METOCLOPRAMIDE INJ 10MG/2ML VIAL (J2765 PER 1) IV ONE (13:05)
[2021-11-24] MEDS ORDERED: PROMETHAZINE INJ 25 MG/ML VIAL (J2550) IV ONE (15:35)
[2021-11-24 16:40] VITALS: BP 115/79
== END 2021-11-24 16:45 | disposition home or self-care (01) ==
LOC: M ED 11:37
DX: R10.9 Unspecified abdominal pain (principal); F41.8 Other specified anxiety disorders; F32.A Depression, unspecified; F43.10 Post-traumatic stress disorder, unspecified; N80.9 Endometriosis, unspecified; Z86.79 Personal history of other diseases of the circulatory system; Z88.1 Allergy status to other antibiotic agents; Z88.5 Allergy status to narcotic agent; V49.50XA Passenger injured in collision with unspecified motor vehicles in traffic accident, initial encounter; Y92.410 Unspecified street and highway as the place of occurrence of the external cause; Y93.9 Activity, unspecified; Y99.9 Unspecified external cause status; Z79.899 Other long term (current) drug therapy
CPT/HCPCS: 36415; 74177; 80047; 80076; 81001; 83690; 84132; 84702; 85025; 85610; 85730; 86850; 86900; 86901; 96374; 96375; 99284; J2270; J2765; Q9967

== ENCOUNTER 2023-07-14 12:40 | Observation (INO) | payer MEDICARE, BC ==
[~2023-07-14] VITALS: Ht 165.1 cm; Wt 63.9 kg
[~2023-07-14 12:40] MED LIST changes: +DICY-61; -DICY10CA13; +LEVO1TAB40 PO; -LEVO750T13 PO
[2023-07-14] MEDS ORDERED: PANTOPRAZOLE 40MG VIAL IV ONE (13:20)
[2023-07-14] MEDS ORDERED: METOCLOPRAMIDE INJ 10MG/2ML VIAL IV ONE (13:20)
[2023-07-14] MEDS ORDERED: NS 1,000 ML IV ONE (13:20)
[2023-07-14 13:39] LABS: BASO % 0.1 % (0.0-1.0); HEMATOCRIT 31.3 % (36.0-47.0); HEMOGLOBIN 10.6 g/dl (12.0-15.5); LYMPH # 0.8 10^3/uL (1.5-5.0); MEAN CORPUSCULAR HEMOGLOBIN 25.5 pg (27.0-33.0); MEAN CORPUSCULAR HGB CONC 33.9 g/dl (32.0-36.5); MEAN CORPUSCULAR VOLUME 75.4 fl (80.0-96.0); MONO # 0.7 10^3/uL (0.0-0.8); MONO % 4.5 % (2.0-8.0); NEUTROPHILS # 13.4 10^3/uL (1.5-8.5); NEUTROPHILS % 89.9 % (36.0-66.0); PLATELET COUNT, AUTOMATED 317 10^3/uL (150-450); RED BLOOD COUNT 4.15 10^6/uL (4.00-5.40); WHITE BLOOD COUNT 14.9 10^3/uL (4.0-10.0)
[2023-07-14] MEDS ORDERED: LORazepam 2 MG/ML 1ML VIAL IV STA ×2 (13:47→15:15)
[2023-07-14] MEDS ORDERED: KETOROLAC 30 MG/ML 1ML VIAL IV ONE (13:50)
[2023-07-14] MEDS ORDERED: HALOPERIDOL 5MG/ML 1ML VIAL IV ONE (13:50)
[2023-07-14 13:54] LABS: LIPASE 20 U/L (12-53)
[2023-07-14 13:55] LABS: HCG, SERUM QUALITATIVE NEGATIVE (NEGATIVE)
[2023-07-14 13:56] LABS: ALBUMIN 3.9 G/DL (3.2-5.2); ALKALINE PHOSPHATASE 109 U/L (46-116); ALT/SGPT 27 U/L (7.0-40); AST/SGOT 24 U/L (<34); BILIRUBIN,DIRECT 0.3 MG/DL (<0.4); BILIRUBIN,TOTAL 0.6 MG/DL (0.3-1.2); BLOOD UREA NITROGEN 6 MG/DL (9-23); CALCIUM LEVEL 8.8 MG/DL (8.5-10.1); CARBON DIOXIDE LEVEL 20 MMOL/L (20-31); CHLORIDE LEVEL 104 MMOL/L (98-107); CREATININE FOR GFR 0.35 MG/DL (0.55-1.30); GLOMERULAR FILTRATION RATE > 60.0 (>60); GLUCOSE, FASTING 157 MG/DL (60-100); POTASSIUM SERUM 3.3 MMOL/L (3.5-5.1); SODIUM LEVEL 135 MMOL/L (136-145); TOTAL PROTEIN 6.3 G/DL (5.7-8.2)
[2023-07-14] MEDS ORDERED: PROCHLORPERAZINE 10MG 2ML VIAL IV ONE (16:50)
[2023-07-14] MEDS ORDERED: CAPSAICIN 0.025% CR 60 GM TOP ONE (16:50)
[2023-07-14] MEDS ORDERED: ACETAMINOPHEN *IV* 1,000 MG in IV 1 EA IV ONE (17:30)
[2023-07-14] MEDS ORDERED: KCL 10MEQ/100ML SWI (KRUN) 10 MEQ in IV 1 EA IV ONE (17:30)
[2023-07-14 18:46] LABS: AMPHETAMINES LEVEL URINE NEGATIVE (NEGATIVE); BARBITURATES URINE NEGATIVE (NEGATIVE); BENZODIAZEPINES URINE NEGATIVE (NEGATIVE); COCAINE METABOLITE URINE NEGATIVE (NEGATIVE); METHADONE URINE NEGATIVE (NEGATIVE); OPIATES URINE NEGATIVE (NEGATIVE); PHENCYCLIDINE URINE NEGATIVE (NEGATIVE)
[2023-07-14 18:48] LABS: CANNABINOIDS URINE POSITIVE (NEGATIVE)
[2023-07-14] MEDS ORDERED: MOM 30ML SUSPENSION UDC PO PRN (18:50)
[2023-07-14] MEDS ORDERED: MAALOX 30 ML SUSP *UDC PO PRN (18:50)
[2023-07-14] MEDS ORDERED: ACETAMINOPHEN TAB 650MG DOSE (2X325MG) PO PRN (18:50)
[2023-07-14] MEDS ORDERED: diphenhydrAMINE 50MG/ML VIAL IM PRN (18:55)
[2023-07-14] MEDS ORDERED: BACL1TAB9 PO (19:29)
[2023-07-14] MEDS ORDERED: BUPR7.5D TOP (19:33)
[2023-07-14] MEDS ORDERED: ALPR1TAB3 PO (19:33)
[2023-07-14] MEDS ORDERED: OXYC30TA PO (19:33)
[2023-07-14] MEDS ORDERED: LIDO1PAD TOP (19:35)
[2023-07-14] MEDS ORDERED: HOME MED LIST COMPLETE! XX SCH (19:40)
[2023-07-14] MEDS: D5W/0.9% SODIUM CHLORIDE 1,000 ML IV SCH (19:47)
[2023-07-14] MEDS ORDERED: ALPRAZolam 0.5 MG TAB PO PRN (19:50)
[2023-07-14] MEDS ORDERED: LIDOCAINE 5% (LIDODERM) PATCH TOP PRN (19:50)
[2023-07-14 20:45] VITALS: BP 137/86; TEMP 99; O2SAT 100
[2023-07-14] MEDS: ASPIRIN 81MG ENTERIC TABLET PO SCH (20:57)
[2023-07-14 22:04] LABS: BLOOD UREA NITROGEN < 5 MG/DL (9-23); CALCIUM LEVEL 8.7 MG/DL (8.5-10.1); CARBON DIOXIDE LEVEL 24 MMOL/L (20-31); CHLORIDE LEVEL 105 MMOL/L (98-107); CREATININE FOR GFR 0.39 MG/DL (0.55-1.30); GLOMERULAR FILTRATION RATE > 60.0 (>60); GLUCOSE, FASTING 116 MG/DL (60-100); MAGNESIUM LEVEL 1.4 MG/DL (1.8-2.4); POTASSIUM SERUM 3.5 MMOL/L (3.5-5.1); SODIUM LEVEL 139 MMOL/L (136-145)
[2023-07-14] MEDS: diphenhydrAMINE 50MG/ML VIAL IV PRN (22:39)
[2023-07-14] MEDS: FAMOTIDINE 20 MG TAB PO SCH ×2 (23:06→23:18)
[2023-07-14] MEDS: KETOROLAC 30 MG/ML 1ML VIAL IV PRN (23:06)
[2023-07-14] MEDS: PROMETHAZINE 25MG/ML 1ML VIAL IV PRN (23:06)
[2023-07-15] MEDS: PROCHLORPERAZINE 10MG 2ML VIAL IV PRN ×2 (00:59→09:23)
[2023-07-15] MEDS ORDERED: MORPHINE 2 MG/ML 1ML VIAL IV ONE ×2 (02:00→15:00)
[2023-07-15 02:45] VITALS: BP 136/72; TEMP 98.8; O2SAT 100
[2023-07-15] MEDS ORDERED: diazePAM 10MG/2ML SYRINGE IV ONE (03:00)
[2023-07-15] MEDS: PROMETHAZINE 25MG/ML 1ML VIAL IV PRN ×3 (05:12→22:04)
[2023-07-15] MEDS: KETOROLAC 30 MG/ML 1ML VIAL IV PRN (05:38)
[2023-07-15 06:00] VITALS: BP 131/66; TEMP 98.6; O2SAT 100
[2023-07-15 08:15] LABS: BASO % 0.1 % (0.0-1.0); HEMATOCRIT 31.4 % (36.0-47.0); HEMOGLOBIN 10.5 g/dl (12.0-15.5); LYMPH # 0.9 10^3/uL (1.5-5.0); LYMPH % 9.5 % (24.0-44.0); MEAN CORPUSCULAR HEMOGLOBIN 25.5 pg (27.0-33.0); MEAN CORPUSCULAR HGB CONC 33.4 g/dl (32.0-36.5); MEAN CORPUSCULAR VOLUME 76.4 fl (80.0-96.0); MONO # 1.2 10^3/uL (0.0-0.8); MONO % 12.3 % (2.0-8.0); NEUTROPHILS # 7.6 10^3/uL (1.5-8.5); NEUTROPHILS % 77.7 % (36.0-66.0); PLATELET COUNT, AUTOMATED 305 10^3/uL (150-450); RED BLOOD COUNT 4.11 10^6/uL (4.00-5.40); WHITE BLOOD COUNT 9.7 10^3/uL (4.0-10.0)
[2023-07-15] MEDS: MAG SULF 1GM/100ML (MAG RUN) 1 GM in IV 1 EA IV SCH ×3 (08:19→10:27)
[2023-07-15] MEDS: diphenhydrAMINE 50MG/ML VIAL IV PRN ×2 (08:19→16:59)
[2023-07-15] MEDS: ENOXAPARIN 40MG/0.4ML SYRINGE (J1650 PER 10MG) SC SCH (08:31)
[2023-07-15 08:49] LABS: BLOOD UREA NITROGEN 5 MG/DL (9-23); CALCIUM LEVEL 8.6 MG/DL (8.5-10.1); CARBON DIOXIDE LEVEL 25 MMOL/L (20-31); CHLORIDE LEVEL 109 MMOL/L (98-107); CREATININE FOR GFR 0.38 MG/DL (0.55-1.30); GLOMERULAR FILTRATION RATE > 60.0 (>60); GLUCOSE, FASTING 117 MG/DL (60-100); MAGNESIUM LEVEL 1.6 MG/DL (1.8-2.4); SODIUM LEVEL 142 MMOL/L (136-145)
[2023-07-15] MEDS ORDERED: PANTOPRAZOLE 40MG VIAL IV SCH (09:00)
[2023-07-15] MEDS ORDERED: DICYCLOMINE 10 MG CAP PO SCH (09:00)
[2023-07-15] MEDS: MORPHINE 10 MG/ML 1ML VIAL IV PRN ×3 (09:23→22:04)
[2023-07-15] MEDS: KCL 10MEQ/100ML SWI (KRUN) 10 MEQ in IV 1 EA IV SCH ×4 (11:37→15:59)
[2023-07-15 14:30] VITALS: O2SAT 99
[2023-07-15 15:00] VITALS: TEMP 98.8
[2023-07-15] MEDS ORDERED: DICYCLOMINE INJ 20MG/2ML IM SCH (16:00)
[2023-07-15] MEDS: D5W/0.9% SODIUM CHLORIDE 1,000 ML IV SCH (17:00)
[2023-07-15] MEDS ORDERED: MORPHINE 10 MG/ML 1ML VIAL IV PRN (19:40)
[2023-07-15] MEDS ORDERED: diphenhydrAMINE 50MG/ML VIAL IV PRN (19:40)
[2023-07-15] MEDS ORDERED: PROMETHAZINE 25MG/ML 1ML VIAL IV PRN (19:43)
[2023-07-15] MEDS ORDERED: PROCHLORPERAZINE 10MG 2ML VIAL IV PRN ×2 (19:45→22:00)
[2023-07-15] MEDS: ASPIRIN 81MG ENTERIC TABLET PO SCH (20:13)
[2023-07-15] MEDS: FAMOTIDINE 20 MG TAB PO SCH (20:13)
[2023-07-15 20:26] VITALS: BP 122/83; TEMP 98; O2SAT 96
[2023-07-15] MEDS: DICYCLOMINE INJ 20MG/2ML IM SCH (22:03)
[2023-07-16] MEDS ORDERED: LORazepam 2 MG/ML 1ML VIAL IV ONE (02:00)
[2023-07-16] MEDS ORDERED: MORPHINE 2 MG/ML 1ML VIAL IV ONE (02:00)
[2023-07-16] MEDS: PROMETHAZINE 25MG/ML 1ML VIAL IV PRN (03:48)
[2023-07-16] MEDS: DICYCLOMINE INJ 20MG/2ML IM SCH (05:11)
[2023-07-16] MEDS: MORPHINE 10 MG/ML 1ML VIAL IV PRN (05:11)
[2023-07-16 06:00] VITALS: BP 130/80; TEMP 97; O2SAT 98
[2023-07-16] MEDS: diphenhydrAMINE 50MG CAP PO SCH ×2 (06:00→14:00)
[2023-07-16] MEDS ORDERED: diphenhydrAMINE 50MG/ML VIAL IV PRN (06:00)
[2023-07-16 06:03] LABS: BASO % 0.2 % (0.0-1.0); EOS # 0.1 10^3/uL (0.0-0.5); EOS % 0.8 % (0.0-3.0); HEMATOCRIT 30.1 % (36.0-47.0); HEMOGLOBIN 9.8 g/dl (12.0-15.5); LYMPH # 2.1 10^3/uL (1.5-5.0); LYMPH % 25.1 % (24.0-44.0); MEAN CORPUSCULAR HEMOGLOBIN 25.3 pg (27.0-33.0); MEAN CORPUSCULAR HGB CONC 32.6 g/dl (32.0-36.5); MEAN CORPUSCULAR VOLUME 77.8 fl (80.0-96.0); MONO # 1.1 10^3/uL (0.0-0.8); MONO % 13.5 % (2.0-8.0); NEUTROPHILS % 60.2 % (36.0-66.0); PLATELET COUNT, AUTOMATED 286 10^3/uL (150-450); RED BLOOD COUNT 3.87 10^6/uL (4.00-5.40); WHITE BLOOD COUNT 8.4 10^3/uL (4.0-10.0)
[2023-07-16 06:31] LABS: BLOOD UREA NITROGEN < 5 MG/DL (9-23); CALCIUM LEVEL 8.2 MG/DL (8.5-10.1); CARBON DIOXIDE LEVEL 28 MMOL/L (20-31); CHLORIDE LEVEL 111 MMOL/L (98-107); CREATININE FOR GFR 0.42 MG/DL (0.55-1.30); GLOMERULAR FILTRATION RATE > 60.0 (>60); GLUCOSE, FASTING 78 MG/DL (60-100); MAGNESIUM LEVEL 1.9 MG/DL (1.8-2.4); SODIUM LEVEL 144 MMOL/L (136-145)
[2023-07-16] MEDS: ENOXAPARIN 40MG/0.4ML SYRINGE (J1650 PER 10MG) SC SCH (08:20)
[2023-07-16] MEDS ORDERED: PANTOPRAZOLE 40MG TAB (PROTONIX) PO SCH (09:00)
[2023-07-16] MEDS ORDERED: PERCOCET 5MG/325MG TAB PO PRN (09:15)
[2023-07-16] MEDS ORDERED: PROCHLORPERAZINE 5MG TAB PO SCH (12:00)
[2023-07-16] MEDS ORDERED: DICYCLOMINE 10 MG CAP PO SCH (12:00)
[2023-07-16] MEDS ORDERED: DIPH50CA PO (12:14)
[2023-07-16] MEDS ORDERED: PROC5TAB57 PO ×2 (12:14→13:29)
[2023-07-16] MEDS ORDERED: DICY1CAP8 PO (12:14)
[2023-07-16] MEDS ORDERED: PANT40TA29 PO (12:14)
[2023-07-16] MEDS ORDERED: PROMETHAZINE 25MG/ML 1ML VIAL IV ONE (12:30)
[2023-07-16] MEDS ORDERED: MORPHINE 10 MG/ML 1ML VIAL IV ONE (13:20)
[2023-07-16] MEDS ORDERED: NS 1,000 ML IV ONE (13:25)
[2023-07-16 16:00] VITALS: BP 100/58; TEMP 97.6; O2SAT 97
[2023-07-16] MEDS ORDERED: PROCHLORPERAZINE 10MG 2ML VIAL IV ONE (16:00)
== END 2023-07-16 17:51 | disposition home or self-care (01) ==
LOC: M ED 12:40 → UNDOADMOB 18:46 → M ED INP 18:46 → M MS4PR 20:45 → M ED INP 20:45
PROVIDERS: ADMIT Student in an Organized Health Care Education/Training Program; ATTEND Student in an Organized Health Care Education/Training Program
DX: R11.15 Cyclical vomiting syndrome unrelated to migraine (principal); K31.84 Gastroparesis; E87.6 Hypokalemia; E83.42 Hypomagnesemia; Z79.82 Long term (current) use of aspirin; Z79.899 Other long term (current) drug therapy; Z88.5 Allergy status to narcotic agent; Z88.1 Allergy status to other antibiotic agents
CPT/HCPCS: 36415; 80047; 80048; 80076; 80307; 81001; 83690; 83735; 84702; 84703; 85025; 87635; 93005; 96361; 96372; 96374; 96375; 96376; 99284; C9113; G0378; J0131; J0500; J0780; J1200; J1885; J2060; J2550; J2765; J3360; J3475